=== PATIENT | female | born 1955 | race Caucasian/White ===

== ENCOUNTER → 2019-04-19 16:24 | Outpatient (BNVA) | payer MEDICARE, BC, SELFPAY | PROVIDERS: PCP Family Medicine; Visit Provider Internal Medicine | DX: K59.00 Constipation, unspecified (principal); L64.9 Androgenic alopecia, unspecified; E03.9 Hypothyroidism, unspecified; E78.5 Hyperlipidemia, unspecified | CPT/HCPCS: 83540; 83550; 84443; 85025 ==

== ENCOUNTER → 2021-01-05 14:59 | Outpatient (BNVA) | payer MEDICARE, BC, SELFPAY | PROVIDERS: PCP Family Medicine; Visit Provider Internal Medicine | DX: R41.82 Altered mental status, unspecified (principal) | CPT/HCPCS: 80053; 82607; 82746; 84443 ==

== ENCOUNTER 2021-01-16 12:21 | Outpatient (CLI) | payer MEDICARE, BC, SELFPAY ==
--- NOTE | 2021-01-16 13:00 | MR_ITS ---
WS: [id number] MRA ANGIOGRAPHY [place] HISTORY: Acute memory loss COMPARISON: None available. TECHNIQUE: 3-D MR angiography is performed of the [place]. All images are reviewed including source images. Distal vertebral and basilar arteries are intact with no significant stenosis or plaque. Posterior ce rebral arteries are normal course and caliber. Slightly prominent and in the proximal RIGHT posterior cerebral artery. Posterior communicating arteries are both patent. Intracranial portion of the internal carotid arteries are normal course and caliber. No significant a therosclerosis, stenosis or aneurysm identified. Middle and anterior cerebral arteries are both paten t with no significant disease. Anterior communicating artery is also normal. MR/MR angio head wo con [id number] IMPRESSION: Normal MRA [place].
--- NOTE | 2021-01-16 13:15 | MR_ITS ---
WS: [id number] MRI BRAIN WITH AND WITHOUT CONTRAST HISTORY: MEMORY TROUBLE COMPARISON: 03/24/2012 TECHNIQUE: Multiplanar imaging performed through the brain with MultiHance 30 ml's IV. No acute infarcts are seen. Redd-white matter differentiation is well preserved. There are numerous s ubcortical T2 and FLAIR signal hyperintensities. These were also present on the study from 03/24/2012 without significant progression. Once signal hyperintensity is adjacent to the medial RIGHT temporal horn. There are a few that are very closely associated with the corpus callosum. Majority of the rem aining of lesions are subcortical. No prior infarct or hemorrhage. Ventricles and extra-axial spaces are normal. Clivus and pituitary gland are normal. Visualized posterior fossa and brainstem are also normal. 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 No enhancing masses. Again noted is the very small venous developmental abnormality in the posterior RIGHT parietal lobe. Dural venous sinuses are normal. Paranasal sinuses: Near complete opacification of the LEFT maxillary sinus with mucoperiosteal thicke paulo. No air-fluid levels. Mastoid air cells: Normal. Calvarium and scalp: Normal. MR/MR head wo/w con [id number] IMPRESSION: 1. No acute infarct or enhancing mass. 2. Numerous T2 and FLAIR signal hyperintensities throughout the white matter. Very minimal progression since 03/24/2012. These may all be related to small ve ssel ischemic change but also consider hypertension, migraines and smoking hist ory. Distribution not typical for demyelinating disease. None of these lesions enhance. 3. 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
--- NOTE | 2021-01-16 13:45 | MR_ITS ---
WS: [id number] MRA CAROTID ARTERIES HISTORY: Acute stroke like symptoms COMPARISON: None available. TECHNIQUE: MRA is performed with intravenous gadolinium. MIP and source images are reviewed. Right: Carotid artery arises from the subclavian artery. Normal course and caliber with no stenosis. Left: Carotid artery arises very close to the base of the brachiocephalic. Normal course and caliber with no occlusion or stenosis. Subclavian Arteries: Normal. Vertebral Arteries: Normal. MR/MR angio neck w con* [id number] IMPRESSION: No significant stenosis or occlusion cervical carotid arteries.
[2021-01-16] MEDS: gadobenate dimeglumine 20 mL vial IV (14:05)
== END 2021-01-16 12:22 | disposition home or self-care (01) ==
LOC: RADSHAW 12:23
PROVIDERS: PCP Internal Medicine; Visit Provider Internal Medicine
DX: R41.3 Other amnesia (principal); J39.2 Other diseases of pharynx
CPT/HCPCS: 70544; 70548; 70553; A9577

== ENCOUNTER → 2022-11-23 11:17 | Outpatient (BNVA) | payer MEDICARE, BC, SELFPAY | PROVIDERS: PCP Internal Medicine; Visit Provider Nurse Practitioner Family | DX: E66.9 Obesity, unspecified (principal); K21.9 Gastro-esophageal reflux disease without esophagitis; I10 Essential (primary) hypertension; E78.5 Hyperlipidemia, unspecified; L64.9 Androgenic alopecia, unspecified | CPT/HCPCS: 80053; 80061; 84443 ==

== ENCOUNTER 2023-03-02 10:02 | Outpatient (CLI) | payer MEDICARE, BC, SELFPAY ==
--- NOTE | 2023-03-02 10:15 | US_ITS ---
WS: [id number] ULTRASOUND SOFT TISSUE AREA OF CONCERN INDICATION: RIGHT neck palpable area TECHNIQUE: Ultrasound soft tissue neck area of concern FINDINGS: Ultrasound in the RIGHT neck area of concern. Elongated lymph node in the area of concern w ith preserved fatty hilum LEFT neck measures 2.1 x 0.6 x 0.8 cm. Preserved fatty hilum with minimal c ortical thickening. This is nonspecific but may be reactive. No other underlying abnormalities visualized. Recommend contrast-enhanced CT of the neck in further e valuation. IMPRESSION: See above
== END 2023-03-02 10:03 | disposition home or self-care (01) ==
LOC: RAD 10:03
PROVIDERS: PCP Internal Medicine; Visit Provider Nurse Practitioner Family
DX: R59.0 Localized enlarged lymph nodes (principal)
CPT/HCPCS: 76536

== ENCOUNTER 2023-03-11 10:14 | Outpatient (CLI) | payer MEDICARE, BC, SELFPAY ==
--- NOTE | 2023-03-11 10:30 | CT_ITS ---
WS: [id number] CT NECK WITH CONTRAST HISTORY: abnormal US of neck TECHNIQUE: Contiguous 2 mm axial images are performed through the neck with intravenous contrast. Sag ittal and coronal reformats are also submitted. All CT scans at [facility] use at least one o f these dose optimization techniques: automated exposure control; mA and/or kV adjustment per patient size (includes targeted exams where dose is matched to clinical indication); or iterative reconstruc tion. CONTRAST: CONTRAST: Omnipaque 350; 100 mL IV. DLP: 177.44 mGy.cm COMPARISON: Ultrasound RIGHT neck 03/02/2023 Nasopharynx, oropharynx, hypopharynx and larynx are unremarkable. No soft tissue masses or abnormal e nhancement. Torus tubarius and fossa of Rosenmuller and parapharyngeal fat are normal. No significant lymphadenopathy is identified. Small benign cervical chain lymph nodes. There is a tiny subcentimeter LEFT thyroid nodule measuring 5 mm. Parotid and submandibular glands ar e negative. No osseous abnormalities. Visualized portions of the skull base demonstrate no abnormalities. Orbits and globes are within norm al limits. No soft tissue masses. Visualized paranasal sinuses and mastoid air cells are normal. Lung apices are clear. IMPRESSION: 1. No neck mass. 2. No cervical chain lymphadenopathy.
[2023-03-11 10:53] LABS: Blood Urea Nitrogen 20 mg/dL (8-23); Glomerular Filtration Rate 62.1 mL/min (90-130)
[2023-03-11] MEDS: iohexol 350 mg/mL 500 mL Btl (per mL) IV (10:57)
== END 2023-03-11 10:15 | disposition home or self-care (01) ==
LOC: RAD 10:14
PROVIDERS: PCP Internal Medicine; Visit Provider Nurse Practitioner Family
DX: R93.89 Abnormal findings on diagnostic imaging of other specified body structures (principal); R59.0 Localized enlarged lymph nodes
CPT/HCPCS: 70491; 82565; 84520; Q9967

== ENCOUNTER → 2023-03-18 12:00 | Outpatient (BNVA) | payer MEDICARE, BC, SELFPAY | PROVIDERS: PCP Internal Medicine; Visit Provider Nurse Practitioner Family | DX: E78.5 Hyperlipidemia, unspecified (principal); I10 Essential (primary) hypertension; E66.9 Obesity, unspecified; E78.2 Mixed hyperlipidemia; K21.9 Gastro-esophageal reflux disease without esophagitis; R59.0 Localized enlarged lymph nodes | CPT/HCPCS: 80053; 80061; 83516 ==

== ENCOUNTER → 2024-11-16 10:29 | Outpatient (BNVA) | payer MEDICARE, BC, SELFPAY | PROVIDERS: Visit Provider Dermatology | DX: L57.8 Other skin changes due to chronic exposure to nonionizing radiation (principal); L81.4 Other melanin hyperpigmentation; L82.1 Other seborrheic keratosis; D23.72 Other benign neoplasm of skin of left lower limb, including hip; L57.0 Actinic keratosis | CPT/HCPCS: 17000; 99203 ==

== ENCOUNTER 2024-11-21 10:55 | Emergency (ER) | payer MEDICARE, BC, SELFPAY ==
--- NOTE | 2024-11-21 11:01 | XR_ITS ---
WS: [id number] Portable AP upright chest, 11/21/2024 Clinical Data: cp Comparison: Two-view chest, 07/17/2015 Findings: No nodules, masses or effusions are seen. The heart is normal. The pulmonary vascularity is not increased. No pneumonia or pneumothorax is seen. The aortic arch and descending thoracic aorta show tortuosity. XR/XR chest 1V portable [id number] Impression: Atherosclerosis.
--- NOTE | 2024-11-21 11:08 | ECG_ITS ---
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 Measurements Intervals [place] Rate: 55 P: 19 ND: 181 QRS: 5 QRSD: 88 T: 18 QT: 431 QTc: 415 Interpretive Statements SINUS BRADYCARDIA MODERATE VOLTAGE CRITERIA FOR LVH, CONSIDER NORMAL VARIANT [MEETS CRITERIA IN ONE OF: R(aVL), S(V1), R(V5), R(V5/V6)+S(V1)] No previous ECG available for comparison Electronically Signed On 11-24-2024 08:53:04 CDT by Les Min M.D. [id number]
[2024-11-21 11:09] VITALS: BP 166/82; PULSE 58; RESP 16; TEMP 36.9; O2SAT 98
--- OUTSIDE RECORDS SUMMARY | 2024-11-21 11:26 | XMS_ITS | Clinical Summary ---
Author Organization [facility] [employer] Address [address] [place] [address] Care Team Providers Care Manager Investment Name Role Phone Tyron Quiroga MD Unavailable [phone] Steve Rodríguez DO Unavailable [phone] Allergies Active Allergy Reactions Criticality Noted Date Comments Codeine Rash Low 03/31/2017 Hydrocodone Itching 12/17/2013 Tramadol Itching 12/17/2013 Medications benazepril (LOTENSIN) 10 MG tablet Take 10 mg by mouth daily. Active metoprolol succinate (TOPROL-XL) 50 MG 24 hr tab Take 50 mg by mouth daily. Active omeprazole (PRILOSEC) 40 MG capsule Take 40 mg by mouth daily. Active atorvastatin (LIPITOR) 10 MG tablet Take 10 mg by mouth daily. Active aspirin 81 MG EC tablet Take 81 mg by mouth daily. Active calcium carbonate-vitami n D3 (CALTRATE 600 + D) 600 mg (1,500 mg)-800 unit Chew Take by mouth. Active Active Problems No known active problems Family History Medical History Relation Comments Arthritis Father Heart disease Father Stroke Father Arthritis Mother Cancer Mother Osteoporosis Mother Relation Status Comments Father Mother Social History Tobacco Use Types Packs/Day Years Used Date Smoking Tobacco: Former Cigarettes Q uit: 05/30/1994 Smokeless Tobacco: Never Alcohol Use Standard Drinks/Week Comments No 0 (1 standard drink = 0.6 oz pur e alcohol) Health Literacy Answer Date Recorded Health Literacy 1 01/07/2021 Comments No Sex and Gender Information Value Date Recorded Sex Assigned at Not on file Legal Sex Female 9:[address] TESTER Gender Identity Not on file Sexual Orientation Not on file Last Filed Vital Signs Vital Sign Reading Time Taken Comments Blood Pressure 151/84 05/30/2017 9:[address] Pulse 55 05/30/2017 9:[address] Temperature 36.6 C (97.8 F) 05/30/2017 9:[address] Respiratory Rate 18 05/30/2017 9:[address] Oxygen Saturation - - Inhaled Oxygen Concentration - - Weight 76.7 kg (169 lb) 05/02/2017 1:[address] Height 162.6 cm (5' 4 ) 05/30/2017 9:[address] Body Mass Index 29.01 05/02/2017 1:[address] Plan of Treatment Health Maintenance Due Date Last Done Comments COLONOSCOPY 1955 CT Colonography 1955 Colorectal Cancer Screening 1955 FIT DNA 1955 FIT 1955 Hepatitis C Screening 1955 Mammogram 1955 SIGMOIDOSCOPY 1955 Depression Screening 08/03/1971 TDAP/DTaP/TD Vaccines (1 - Tdap) 1972 Lipid Panel 1993 Pneumococcal Vaccine 50+ (1 of 1 - PCV) 08/03/2003 Zoster Vaccine (1 of 2) 08/03/2003 DXA Scan 2018 COVID-19 Vaccine (1 - 2023-2 5 season) 2023 Annual Wellness Exam 04/04/2024 Influenza Series (#1) 2024 Respiratory Syncytial Virus (RSV) Immunization - pts and pts aged 60 yrs+ (1 - 1-dose 75+ series) 2028 Hepatitis B Vaccine Aged Out No longe r eligible based on patient's age to complete this topic Meningococcal B Vaccine Aged Out No l onger eligible based on patient's age to complete this topic [place] [address] Member Subscriber Plan / Payer (Ef fective 2017-Present) Name:Ami Kirkpatrick Member ID:[id number] Relation to Subscriber:Self Name:Ami Kirkpatrick Subscriber ID:[id number] Payer ID:[id number] (NAIC) Type:Not on file Address: [place] [id number] Care Teams Manager Investment Relationship Specialty Start Date End Date Steve Rodríguez DO [address] [place] [address] PCP - Medical Office Receptionist 03/31/17 Tyron Quiroga MD [address] [place] [address] Referring Provider Orthopedic Surgery 03/31/17
--- OUTSIDE RECORDS SUMMARY | 2024-11-21 11:26 | XMS_ITS | Clinical Summary ---
Author Organization [facility] Address [address] [place] [address] Phone Care Team Providers Care Elementary Teacher Name Role Phone Kenroy Andujar MD Primary Care Prov ider Allergies Active Allergy Reactions Criticality Noted Date Comments Codeine 11/16/2013 Hydrocodone 12/17/2013 Ketorolac 11/16/2013 Tramadol 12/17/2013 Medications * This document contains information received from the source organization and may not represent a complete record from that organization. benazepril (LOTENSIN) 10 MG tablet 09/25/2012 Active gabapentin (NEURONTIN) 300 MG capsule 01/24/2013 Active atorvastatin (LIPITOR) 10 MG tablet 09/25/2012 Active metoprolol (TOPROL-XL) 50 MG 24 hr tablet 09/25/2012 Act daniel omeprazole (PRILOSEC) 40 MG capsule 09/25/2012 Active escitalopram oxalate (LEXAPRO) 5 MG tablet TAKE 1 TABLET BY MOUTH DAILY 11 01/26/2016 Active phenazopyridine (PYRIDIUM) 100 MG tablet TAKE TWO TABLETS BY MOUTH THREE TIMES DAILY NEEDED 0 11/25/2015 Active Active Problems Problem Noted Date Diagnosed Date Esophageal reflux 09/25/2012 Hypercholesterolemia 09/25/2012 Essential hypertension 09/25/2012 Routine general medical exam ination at a health care facility 09/18/2012 Encounters Date Type Department Care Team Description 09/25/2024 2:35 PM CDT - 09/25/2024 11:59 PM CDT Hospital Encounter [facility] [address] [phone] Kenroy Andujar MD Encounter for screening mammogram for malignant neoplasm of breast Discharge Disposition: Home 09/25/2024 Travel 09/24/2024 Travel from Last 3 Months Family History Medical History Relation Name Comments Heart disease Father Stroke Father High Blood Pressure Mother Relation Name Status Comments Father Mother Social History Tobacco Use Types Packs/Day Years Used Date Smoking Tobacco: Never Smokeless Tobacco: Never Alcohol Use Standard Drinks/Week Comments Not Asked 0 (1 standard drink = 0.6 oz pur e alcohol) Comments No Sex and Gender Information Value Date Recorded Sex Assigned at Not on file Legal Sex 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 Gender Identity Not on file Sexual Orientation Not on file Last Filed Vital Signs Vital Sign Reading Time Taken Comments Blood Pressure 134/69 09/13/2023 2:31 PM CDT Pulse 65 09/13/2023 2:31 PM CDT Temperature 36.7 C (98.1 F) 02/20/2014 10:24 AM FOOD AND BEVERAGE ASSISTANT MANAGER Respiratory Rate 18 02/02/2016 2:11 PM CDT Oxygen Saturation 95% 02/20/2014 12:45 PM FOOD AND BEVERAGE ASSISTANT MANAGER Inhaled Oxygen Concentration - - Weight 76.7 kg (169 lb 1.9 oz) 02/02/2016 2:11 P M CDT Height 162.6 cm (5' 4 ) 02/02/2016 2:11 PM CDT Body Mass Index 29.03 02/02/2016 2:11 PM CDT Plan of Treatment Health Maintenance Due Date Last Done Comments Colorectal Cancer Screening Annual FOBT/FIT Test 1955 Colorectal Cancer Screening Cologuard 1955 Colorectal Cancer Screening Flex Sigmoidoscopy 1955 Annual Depression Screening 1964 Hepatitis C Antibody Screen 08/03/1971 Pneumococcal Vaccine Age 50+ (1 of 1 - PCV) 08/03/2003 Colonoscopy Every 6 Months 08/20/2014 02/20/2014 Bone Density 2018 Medicare Subsequent AWV G0439 07/04/2019 Colorectal CA Screen 10 Year Colonoscopy 02/21/2024 02/20/2014 Colorectal Cancer Screening 02/21/2024 Flu Vaccine (#1) 12/03/2024 Mammogram 09/25/2025 09/25/2024, 03/06, 08/17/2023, Additional history exists RSV Immunization Pa tients or 60+ Years (1 - 1-dose 75+ series) 2028 02/20/2014 02/20/2014 02/20/2014 02/20/2014 02/20/2014 02/20/2014 Procedures Procedure Name Priority Date/Time Associated Diagnosis Comments MAMMO DIGITAL SCREENING BILATERAL Routine 09/25/2024 3:00 PM CDT Encounter for screening mammogram for malignant neoplasm of breast from Last 3 Months Results * Mammography Digital Screening Bilateral (09/25/2024 3:00 PM CDT) Anatomical Region Laterality Modality Breast N/A Mammogram 09/25/2024 5:42 PM CDT Narrative 09/25/2024 5:44 PM CDT HISTORY: 69 year-old woman is asymptomatic and presents for screening mammography. The patient is post bilateral reduction mammoplasty. REFERENCE EXAMINATION: Comparison is made to the prior exams dated August 17, 2023 through February 02, 2016. TECHNIQUE: Bilateral CC and MLO digital images were obtained with tomosynthesis. Computer aided detection was utilized during the interpretation of this mammogram. FINDINGS: BREAST DENSITY CATEGORY: There are scattered areas of fibroglandular density. Bilateral central architectural distortion is seen consistent with reduction mammoplasty. Bilateral vascular and round calcific stations are noted, unchanged. Right breast: There are no significant masses, suspicious microcalcifications or other findings of concern in the right breast. There has been no significant interval change. Left breast: There are no significant masses, suspicious microcalcifications or other findings of concern in the left breast. There has been no significant interval change. ASSESSMENT: BI-RADS Category 2. Benign Findings. FOLLOW-UP RECOMMENDATION: Followup in 1 year Recommend mammography in 12 months or as clinically warranted, regular physical exam by a healthcare provider and monthly self-breast exam. Disclaimer A negative mammography report should not preclude biopsy if clinically indicated. Any palpable mass should be aspirated, biopsied, or followed clinically. The [facility] provide medical services for physician-referred patients. This report was sent to you at the request of the patient. All patient information was entered into a reminder system for patient to receive notification of their next targeted date for screening/ diagnostic mammography. Procedure Note Carolyn Chavez MD - 09/25/2024 HISTORY: 69 year-old woman is asymptomatic and presents for screening mammography. The patient is post bilateral reduction mammoplasty. REFERENCE EXAMINATION: Comparison is made to the prior exams dated August 17, 2023 through February 02, 2016. TECHNIQUE: Bilateral CC and MLO digital images were obtained with tomosynthesis. Computer aided detection was utilized during the interpretation of this mammogram. FINDINGS: BREAST DENSITY CATEGORY: There are scattered areas of fibroglandular density. Bilateral central architectural distortion is seen consistent with reduction mammoplasty. Bilateral vascular and round calcific stations are noted, unchanged. Right breast: There are no significant masses, suspicious microcalcifications or other findings of concern in the right breast. There has been no significant interval change. Left breast: There are no significant masses, suspicious microcalcifications or other findings of concern in the left breast. There has been no significant interval change. ASSESSMENT: BI-RADS Category 2. Benign Findings. FOLLOW-UP RECOMMENDATION: Followup in 1 year Recommend mammography in 12 months or as clinically warranted, regular physical exam by a healthcare provider and monthly self-breast exam. Disclaimer A negative mammography report should not preclude biopsy if clinically indicated. Any palpable mass should be aspirated, biopsied, or followed clinically. The [facility] provide medical services for physician-referred patients. This report was sent to you at the request of the patient. All patient information was entered into a reminder system for patient to receive notification of their next targeted date for screening/ diagnostic mammography. Kenroy Andujar MD MM IMG ORDERABLES Final Result from Last 3 Months Insurance MEDICARE [facility] Care Teams Elementary Teacher Relationship Specialty Start Date End Date Kenroy Andujar MD [address] [place] [id number] PCP - General Internal Medicine 07/06/21
--- OUTSIDE RECORDS SUMMARY | 2024-11-21 11:26 | XMS_ITS | Patient Health Record ---
Author Organization [facility] Address [address] [place] [address] Care Team Providers Care Section Gang Worker Name Role Phone AndujarKenroy claire Primary Care Provider Allergies Allergen (clinical drug ingredient) Drug/Non Drug Allergy documented on EMR Reaction Allergy Type Onset Date Status codeine Codeine Unknown Drug Allergy Active hydrocodone Hydrocodone Unknown Drug Allergy Act daniel Results Component Value Reference Range Flag Notes CBC w\ Auto Diff 10204 Reviewed date:11/01/2024 09:16:07 AM Interpretation: Performing Lab: Notes/Report: Diagnosis Description: Headache, unspecified 08-JAN-2020 11:53:42<$> WBC 6.5 4.5-11.0 X10'3 RBC 4.65 4.00-5.20 X10'6 Hgb 13.1 12.0-16.0 G/DL Hct 41.2 36.0-46.0 % MCV 88.6 80.0-100.0 FL MCH 28.2 27.0-31.0 PG MCHC 31.8 31.0-37.0 G/DL Platelet 262 150-400 X10'3 RDW-SD 41.1 35.0-49.0 FL RDW-CV 12.5 12.2-15.6 % MPV 9.8 9.2-12.0 FL Neutro Auto% 58.7 40.0-70.0 % Lymph Auto% 28.8 22.0-44.0 % Sawyer Auto% 7.7 3.0-7.0 % HI Eos Auto% 3.7 2.0-4.0 % Baso Auto% 0.8 0.0-1.0 % Imm Gran% .3 .0-.4 % Neutro Abs 3.82 .80-7.70 Absolute Neutrophil Count 3820 NA Lymph Abs 1.87 .10-4.10 Sawyer Abs .50 .20-1.00 Eos Abs .24 .00-.40 Baso Abs .05 .00-.20 Imm Gran Abs .02 .00-.10 NRBC# .00 .00-.20 X10'3 NRBC% .00 .00-.20 /100 intact WBC's Comprehensive Metabolic Pane l (CMP) 90531 Reviewed date:11/01/2024 09:16:07 AM Interpretation: Performing Lab: Notes/Report: Diagnosis Description: Headache, unspecified 08-JAN-2020 11:53:42<$> Glucose Serum 123 71-110 MG/DL HI Testing p erformed at [facility], [address] [place] [address] [place] [address]. CLIA ID#: [id number] BUN 16 7-21 MG/DL Creat .81 .51-1.17 MG/DL Use of this assay is not recommended for patients undergoing treatment with phenindione, due to the potential for falsely depressed results. G-jvjtzv-c-benzoquinon e imine (NAPQI) is a metabolite of acetaminophen, NAPQI concentrations of apparoximately 10 mg/L correlation to toxic levels of acetaminophen demonstrates a greater than or equil to 10% change in results. NAPQI concentrations greater than this may lead to falsely depressed results for patient samples. GFR 77.3 NA Calculation pe rformed from GFR calculator provided by the [employer]. Glomerular Filtration rate(GRF) is the best overall index of kidney function. Normal GFR varies according to age,sex, body size, and declines with age. The National Kid[employer] Foundation recommends using the CKD-EPI Creatinine Equation(2020) to estimate GFR. BUN/Creat Ratio 19.8 12.0-20.0 % Total Protein 6.8 5.8-8.0 G/DL Albumin 4.4 3.2-4.8 G/DL Globulin 2.4 2.3-3.5 G/DL Alb/Glob 1.8 0.8-2.2 Calcium 9.7 8.7-10.4 MG/DL Sodium 141 136-145 MMOL/L Potassium 4.2 3.5-5.1 MMOL/L Chloride 103 98-107 MMOL/L CO2 28.9 20.0-31.0 MMOL/L Anion Gap 13 5-15 Alk Phos 69 46-116 Bili Total .4 .3-1.2 MG/DL Use of this assay is not recommended for patients undergoing treatment with eltrombopag due to the potential for falsely elevated results. AST/SGOT 25 15-37 UNIT/L ALT/SGPT 16 12-78 UNIT/L Osmo Serum,Calculated 294 280-300 MOSM/KG Sedimentation Rate 04609 Reviewed date:11/01/2024 09:16:07 AM Interpretation: Performing Lab: Notes/Report: Diagnosis Description: Headache, unspecified 08-JAN-2020 11:53:42<$> Sed Rate 3 0-30 MM/HR Thyroid Stimulating Hormone (TSH) 49655 Reviewed date:11/01/2024 09:16:07 AM Interpretation: Performing Lab: Notes/Report: Diagnosis Description: Headache, unspecified 08-JAN-2020 11:53:42<$> TSH 1.182 .358-3.740 MlU/ML CRP 57489 Reviewed date:11/01/2024 09:16:07 AM Interpretation: Performing Lab: Notes/Report: Diagnosis Description: Headache, unspecified 08-JAN-2020 11:53:42<$> CRP <.50 .40-1.00 MG/DL CT Head w/ + w/o Contrast-70 470 Reviewed date:11/13/2024 11:04:09 AM Interpretation: Performing Lab: Notes/Report: See Below For Report CT Head w/ + w/o Contrast Read See Below For Report CT Head w/ + w/o Contrast-70 470 Reviewed date:11/13/2024 11:04:09 AM Interpretation: Performing Lab: Notes/Report: gxr=[id number]&org=iSite Knee 2V Left-65026 Reviewed date:02/15/2024 03:28:42 PM Interpretation: Performing Lab: Notes/Report: irn=[id number]&org=iSite Mammogram Diag Cm Unilat L T-38714 Reviewed date:03/07/2024 04:02:21 PM Interpretation: Performing Lab: Notes/Report: % Iron Saturation (Fe & TIBC )--18329,53190 Reviewed date:11/01/2024 09:16:07 AM Interpretation: Performing Lab: Notes/Report: Diagnosis Description: Headache, unspecified 08-JAN-2020 11:53:42<$> Iron 64 50-170 MCG/DL Per Iron as say instruction for Use(IFU), patients treated with metal-binding drugs (e.g.deferoxamine) may have depressed iron values as chelated iron may not properly react in the iron assay. Testing was performed with this assay method. TIBC 250 250-450 NG/DL % Iron Saturation 26 20-50 % Lipid Panel CSP--NO CPT Reviewed date:03/20/2024 08:46:34 AM Interpretation: Performing Lab: Notes/Report: Trig 145 NA High 200-499 10-14 yr 32-125 Classification Guidelines:Triglyceride s 15-19 yr 39-132 Children: Male 0-4 yr 34-112 10-14 yr 37-131 5-9 yr 30-101 Borderline High 150-199 Adults: >20yrs Very high >=500 Children: Female Desirable <150 0-4 yr 22-99 5-9 yr 32-105 15-19 yr 37-148 Chol 175 <=200 MG/DL HDL 44 39-96 MG/DL 10-14y 37-70 10-14y 37-74 >=20y 40-59 Male: 5-9y 38-75 5-9y 36-73 >=20y 40-59 15-19y 30-63 Reference Ranges:HDL 15-19y 35-74 Female: CH/HDL 4.0 0.0-4.9 RATIO LDL 102 0-130 MG/DL LDL result is inaccurate , if Trig is >400 mg/dl. See DLDL result. Hemoglobin Q6I--JX CPT Reviewed date:03/20/2024 08:46:34 AM Interpretation: Performing Lab: Notes/Report: Hgb A1c 5.4 3.8-6.4 % Interpretation Of Hgb A1c: 4.5-6.2 % nondiabetics. >7.0 % diabetics. EAG 108 NA Estimated Aver age Glucose(EAG). zzzUS Ankle Brachial Pressur e Index Screen Reviewed date:03/20/2024 08:46:34 AM Interpretation: Performing Lab: Notes/Report: See Below For Report US Ankle Brachial Pressure Index Screen Read See Below For Report zzzUS Ankle Brachial Pressur e Index Screen Reviewed date:03/20/2024 08:46:42 AM Interpretation: Performing Lab: Notes/Report: foj=[id number]&org=iSite zzzCT Cardiac Calcium Scorin g Screening-31888 Reviewed date:03/20/2024 08:46:34 AM Interpretation: Performing Lab: Notes/Report: See Below For Report CT Cardiac Calcium Scoring Screening Read See Below For Report zzzCT Cardiac Calcium Scorin g Screening-03846 Reviewed date:03/20/2024 08:46:42 AM Interpretation: Performing Lab: Notes/Report: whl=[id number]&org=iSite zzzCT Cardiac Calcium Scorin g Screening RAD Reviewed date:03/20/2024 08:46:34 AM Interpretation: Performing Lab: Notes/Report: See Below For Report Technique: Gated cardiac imaging was performed with calculation of a Read See Below For Report zzzCT Cardiac Calcium Scorin g Screening RAD Reviewed date:03/20/2024 08:46:42 AM Interpretation: Performing Lab: Notes/Report: akt=[id number]&org=iSite Schedule Confirmation Reviewed date:03/20/2024 08:46:34 AM Interpretation: Performing Lab: Notes/Report: US Ankle Brachial Pressure Index Screen Schedule Confirmation Reviewed date:03/20/2024 08:46:34 AM Interpretation: Performing Lab: Notes/Report: CT Cardiac Calcium Scoring Screening RAD Schedule Confirmation Reviewed date:03/20/2024 08:46:34 AM Interpretation: Performing Lab: Notes/Report: Lipid Panel CSP Schedule Confirmation Reviewed date:01/30/2024 12:31:21 PM Interpretation: Performing Lab: Notes/Report: Nurse Assessment-Cardiac Screening Schedule Confirmation Reviewed date:01/30/2024 12:31:21 PM Interpretation: Performing Lab: Notes/Report: US Ankle Brachial Pressure Index Screen Schedule Confirmation Reviewed date:01/30/2024 12:31:21 PM Interpretation: Performing Lab: Notes/Report: CT Cardiac Calcium Scoring Screening RAD Schedule Confirmation Reviewed date:01/30/2024 12:31:21 PM Interpretation: Performing Lab: Notes/Report: Lipid Panel CSP Schedule Confirmation Reviewed date:03/20/2024 08:46:34 AM Interpretation: Performing Lab: Notes/Report: IH Knee HoodV Left - 14187 Reviewed date:02/15/2024 03:28:31 PM Interpretation: Performing Lab: Notes/Report: See Below For Report Knee 2V Left Reason For Referral No Information Medications Medication SIG (Take, Route, Frequency, Duration) Notes Start Date End Date Status Omeprazole 40 MG Capsule Delayed Release 1 capsule 30 minutes before morning meal Orally Once a day; Duration: 90 days Active Fluticasone Propionate 50 MCG/ACT Suspension 2 spray in each nostril Nasally Once a day; Duration: 30 day(s) Not-Taking Caltrate 600+D3 600-800 MG-UNIT Tablet 1 tablet with a meal Orally Once a day Not-Taking Aspirin 81 81 MG Tablet Delayed Release 1 tablet Orally Once a day Not-Taking predniSONE 20 MG Tablet 1 tablet with fo od or milk Orally Once a day; Duration: 10 days 10/31/2024 Active Finasteride 5 MG Tablet Take 1 tablet by mouth once daily; Duration: 90 Active Shingrix 50 MCG/0.5ML Suspension Reconstituted as directed Intramuscular 08/07/2020 Not-Taking Atorvastatin Calcium 10 MG Tablet Take 1 tablet by mouth once daily; Duration: 90 Active Triamcinolone Acetonide 0.1 % Cream 1 application Externally Twice a day as needed 10/03/2019 Not-Taking Citalopram Hydrobromide 20 MG Tablet Take 1 tablet by mouth once daily; Duration: 90 days Active Medrol 4 MG Tablet Therapy Pack as directed Orally 12/08/2021 Not-Nelson g Fluticasone-Salmeterol 500-50 MCG/ACT Aerosol Powder Breath Activated INHALE 1 PUFF BY MOUTH TWICE DAILY; Duration: 30 Active predniSONE 20 MG Tablet 1 tablet Orally Once a day; Duration: 7 day(s) 06/25/2022 Not-Jesusita ng Metoprolol Succinate ER 50 MG Tablet Extended Release 24 Hour Take 1 tablet by mouth once daily; Duration: 90 Active Benazepril HCl 10 MG Tablet Take 1 tablet by mouth once daily; Duration: 90 Active Social History Tobacco Use: Social History Observation Description Date Details (start date - stop date) Former Smoker NA - NA Social History Depression Screening Social Info Question Answer Notes depression screening findings Findings Negative (0 -4) 10/31/24 PHQ-9 Little interest or p neno in doing things Not at all Feeling down, depressed, or hopeless Not at all Trouble falling or staying asleep, or sleeping t oo much Not at all Feeling tired or having little energy Not at all Poor appetite or overeating Not at all Feeling bad about yourself, or that you are a failure, or have let yourself or your family down Not at all Trouble concentrating on thi ngs, such as reading the newspaper or watching television Not at all Moving or speaking so slowly that other people could have noticed. Or the opposite ? being so fidgety or restless that you have been moving around a lot more than usual Not at all Thoughts that you would be b odilon off , or of hurting yourself in some way Not at all Total Score 0 Comprehensive Health Assessm ent Social Info Question Answer Notes *Social Determinants of Health Has lack of transportation kept you from medical appointments, meetings, work or from getting things needed for daily living? No Recently, have you worried t hat your food would run out before you got money to buy more? No Do you feel physically and emotionally safe wher e you currently live? Yes Are you worried about losing your housing? No Have you recently been gerry rned that your utilities would be turned off (electricity, gas, or water)? No Tobacco Use: Social Info Question Answer Notes Tobacco Control (Standard) Tobacco use: Former smoker How long has it been since you last smoked? Greater than 10 years Section Notes: 08/07/20 09/08/21 08/07/20 08/07/20 08/07/20 09/08/21 08/07/20 09/08/21 08/07/20 09/08/21 08/07/20 09/08/21 08/07/20 09/08/21 08/07/20 09/08/21 08/07/20 09/08/21 08/07/20 09/08/21 08/07/20 09/08/21 08/07/20 09/08/21 02/02/24 08/07/20 09/08/21 02/02/24 08/07/20 09/08/21 02/02/24 11/06/24 08/07/20 09/08/21 08/07/20 09/08/21 08/07/20 09/08/2121 6/7/22 5/6/21 6/7/22 5/6/21 6/7/22 5/6/21 6/7/22 5/6/21 6/7/22 5/6/21 6/7/22 5/6/21 6/7/22 Problems Problem Type SNOMED Code ICD Code Onset Dates Problem Status W/U Status Risk Notes Problem Chronic kidney disease stage 2 (713399632) Chronic kidney disease, stage 2 (mild) (N18.2) Active confirmed Problem Essential hypertension (16147590) Essential hypertension (I10) Active confirmed Problem Hyperlipidaemia (67099157) Hyperlipidemia, unspecified hyperlipidemia type (E78.5) Active confirmed Problem Sacroiliitis (07222891) Sacroiliitis (M46.1) Active confirmed Problem Mild recurrent major depression (15597390) Mild episode of recurrent major depressive disorder (F33.0) Active confirmed Problem Temporal pain (R51.9) Active confirmed Problem Mitral valve disorder (73616789) Nonrheumatic mitral (valve) prolapse (I34.1) Active confirmed [id number] -S nomed Description:M itral valve prolapse Problem Shortness of breath (069794669) Shortness of breath (R06.02) Active confirmed [id number]- Problem Essential hypertension (61579765) Essential primary hypertension (I10) Active confirmed [id number] nomed Description:B enign essential hypertension Vital Signs Heart Rate 60 /min 11/06/2024 Temperature 97.8 degrees Fahrenheit 11/06/2024 Blood pressure diastolic 93 mm Hg 11/06/2024 Oximetry 97 % 11/06/2024 Height-cm 162.56 cm 11/06/2024 Weight-kg 76.2 kg 11/06/2024 Height 64 in 11/06/2024 Blood pressure systolic 166 mm Hg 11/06/2024 Weight 168 lbs 11/06/2024 BMI 28.83 kg/m2 11/06/2024 Encounters Encounter Location Date Provider Diagnosis [facility] [address] [place] [phone] 02/02/2024 Kenroy Andujar Mild episode of recurrent major depressive disorder F33.0 ; Essential primary hypertension I10 and Depression screen Z13.31 [facility] [address] [address] 10/31/2024 Kenroy Andujar Temporal pain R51.9 ; Essential primary hypertension I10 ; Mild episode of recurrent major depressive disorder F33.0 ; Essential hypertension I10 and Depression screen Z13.31 [facility] [address] [address] 11/06/2024 Kenroy Andujar Encounter for Medicare annual wellness exam Z00.00 ; Essential primary hypertension I10 ; Mild episode of recurrent major depressive disorder F33.0 ; Temporal pain R51.9 and Depression screen Z13.31 [facility] [address] [address] 01/19/2024 Kenroy Andujar [facility] [address] [address] 02/01/2024 Kenroy Andujar Left knee pain, unspecified chronicity M25.562 [facility] [address] [address] 03/05/2024 Kenroy Andujar [facility] [address] [address] 03/05/2024 Kenroy Andujar Abnormal mammogram R92.8 [facility] [address] [address] 04/17/2024 Kenroy Andujar [facility] [address] [place] [phone] 08/15/2024 Kenroy Andujar Advanced care planning/counseling discussion Z71.89 Assessments Encounter Date Diagnosis (ICD Code) Assessment Notes Treatment Notes Treatment Clinical Notes Section Notes 02/01/2024 Left knee pain, unspecified chronicity (ICD-10 - M25.562) 02/02/2024 Mild episode of recurrent major depressive disorder (ICD-10 - F33.0) 02/02/2024 Essential primary hypertension (ICD-10 - I10) [id number] med Description:Yobani ign essential hypertension 03/05/2024 Abnormal mammogram (ICD-10 - R92.8) 08/15/2024 Advanced care planning/automobile travel club counselor ing discussion (ICD-10 - Z71.89) ACP printed and provided to pt 10/31/2024 Temporal pain (ICD-10 - R51.9) 10/31/2024 Essential primary hypertension (ICD-10 - I10) [id number] med Description:Yobani ign essential hypertension 11/06/2024 Encounter for Medicare annual wellness exam (ICD-10 - Z00.00) Please schedule your next AWV in 1 year. 11/06/2024 Essential primary hypertension (ICD-10 - I10) [id number]-Rnv med Description:Yobani ign essential hypertension Pt advised to take meds as prescribed, exercise as tolerated, and monitor BP as directed. If symptoms develop, parameters out of range, or any distress contact clinic or utilize ER. 11/06/2024 Mild episode of recurrent major depressive disorder (ICD-10 - F33.0) 10/31/2024 Mild episode of recurrent major depressive disorder (ICD-10 - F33.0) 02/02/2024 Depression screen (ICD-10 - Z13.31) 10/31/2024 Essential hypertension (ICD-10 - I10) 11/06/2024 Temporal pain (ICD-10 - R51.9) will give dexamethasone in clinic 11/06/2024 Depression screen (ICD-10 - Z13.31) 10/31/2024 Depression screen (ICD-10 - Z13.31) 10/31/2024 Other Venipuncture performed by Sheela Villasenor. Left arm/hand. One attempt. Pt tolerated well, bleeding controlled with light dressing. Lab sent to [facility] via [employer]. 08/15/2024 Other spent 16 mins discussing ACP Dx: Z71.89 Discussed Advance Care Planning. Patient does not have an advance care plan or surrogate decision maker in place. Encouraged patient to consider options, provided with resources to help make decisions regarding advance care options. 1124F Discussed Advance Care Planning. Patient has an advance care plan or surrogate decision maker in place. A copy of pertinent documents have been requested or exist in the chart currently, 1123F Plan Of Treatment No Information Insurance Providers Payer Name Payer Address Payer Phone Subscriber Number Group Number Insured Name Patient Relationship to Insured Coverage Start Date Coverage End Date [place] [address] [place] [phone] [id number] KayaYovannyAmi Self - patient is the insured BCBS Supplement [address] [place] [phone] [id number] Yovanny Kirkpatrickette Self - patient is the insured Medications Administered Medication Instructions Date of Administration Dosage Notes BUPivacaine HCl 09/14/2022 1 mL DEPO-Medrol 09/08/2021 40 mg DEPO-Medrol 09/14/2022 80 mg dexAMETHasone 12/02/2021 8 mg [id number] 239-0 3 dexAMETHasone 11/06/2024 10 mg Rocephin 12/02/2021 1 g [id number] 11 zzDexamethasone 12/17/2019 8 mg dexAMETHasone 09/08/2021 4 mg dexAMETHasone 10/31/2024 10 mg dexAMETHasone 06/28/2022 10 mg dexAMETHasone 12/24/2021 8 mg [id number]- 30 Dexamethasone Sodium Phosphate 10/03/2019 8 mg Medical (General) History Medical History History ICD Code hypertension hyperlipidemia anxiety GERD Dysthymia F34.1 Surgical History Surgery Date(Month/Year) hysterectomy tonsilectomy breast reduction
--- OUTSIDE RECORDS SUMMARY | 2024-11-21 11:26 | XMS_ITS | Clinical Summary ---
Author Organization [facility] Address [address] [place] [address] Care Team Providers Care Entry Clerk Name Role Phone Unavailable Primary Care Provider Unavailabl e Social History Tobacco Use Types Packs/Day Years Used Date Smoking Tobacco: Never Assessed Comments Unknown Sex and Gender Information Value Date Recorded Sex Assigned at Not on file Legal Sex Female 9:01 AM CDT Gender Identity Not on file Sexual Orientation Not on file Plan of Treatment Health Maintenance Due Date Last Done Comments DTAP/TDAP/TD VACCINES (1 - Tdap) 1972 COLORECTAL SCREENING 1998 Colorectal Cancer Screening 1998 FIT-DNA Q 3 years 1998 FIT/FOBT Q 1 year 1998 Flex Sig/CT Colonography Q 5 years 1998 PNEUMOCOCCAL VACCINE 50+ YEA RS (1 of 1 - PCV) 08/03/2003 ZOSTER VACCINE (1 of 2) 08/03/2003 OSTEOPOROSIS SCREENING 2018 BREAST CANCER SCREENING 07/09/2023 07/09/19 23, 07/08/2022, 07/06/2021, Additional history exists INFLUENZA VACCINE (#1) 2024 01/05/2021 RSV VACCINE (60+ or ) (1 - 1-dose 75+ series) 2028
--- OUTSIDE RECORDS SUMMARY | 2024-11-21 11:26 | XMS_ITS | Encounter Summary ---
Author Organization [facility] Address [address] [place] [address] Care Team Providers Care Tour Manager Name Role Phone Unavailable Primary Care Provider Unavailabl e Encounter Details Date Type Department Care Team (Late st Contact Info) Description 01/06/2023 Lab Requisition [facility] [address] [place] [address] Evita Wong NP [address] [address] [place] [address] Social History Tobacco Use Types Packs/Day Years Used Date Smoking Tobacco: Never Assessed Comments Unknown Sex and Gender Information Value Date Recorded Sex Assigned at Not on file Legal Sex Female 9:01 AM CDT Gender Identity Not on file Sexual Orientation Not on file documented as of this encounter Plan of Treatment Not on file documented as of this encounter Procedures Procedure Name Priority Date/Time Associated Diagnosis Comments REFERENCE LAB PROCESSING FEE Routine 01/06/2023 1:10 PM CDT documented in this encounter Results * REFERENCE LAB PROCESSING FEE (01/06/2023 1:10 PM CDT) REFERENCE LAB SENDOUT Completed 01/06/2023 1:15 PM CDT [facility] Other, specify BLOOD SPECIMEN / Unknown Collection / Unknown 01/06/2023 1:10 PM CDT 01/06/2023 1:15 PM CDT us Evita Wong NP CHEMISTRY ORDERABLES Final Res ult [facility] # [id number] [address] [place], [place] [id number] documented in this encounter Visit Diagnoses Not on filedocumented in this encounter
[2024-11-21 11:41] LABS: Hematocrit 41.2 % (36-47); Hemoglobin 13.20 g/dL (11.27-16.99); Mean Corpuscular HGB Conc 32.0 g/dL (30-55); Mean Corpuscular Hemoglobin 28.2 pg (27-33); Mean Corpuscular Volume 88.0 fl (85-98); Nucleated Red Blood Cells % 0 %; Platelet Count 238 10^3/cmm (157-399); Red Blood Count 4.68 10^6/uL (3.85-5.65); White Blood Count 6.26 10^3/uL (3.29-11.43)
[2024-11-21 11:59] LABS: Troponin(5th) Baseline < 6 ng/L (0-10)
[2024-11-21 12:02] LABS: INR 0.88 (0.8-1.2); Prothrombin Time 12.60 SECONDS (12.1-14.9)
[2024-11-21 12:09] LABS: Alanine Aminotransferase 13 U/L (0-33); Albumin Level 4.3 g/dL (3.5-5.2); Alkaline Phosphatase 73 U/L (35-105); Anion Gap 15.6 (5-19); Aspartate Amino Transferase 18 U/L (0-32); Blood Urea Nitrogen 15 mg/dL (8-23); Calcium 9.2 mg/dL (8.5-10.5); Carbon Dioxide 25 mmol/L (22-29); Chloride 105 mmol/L (98-107); Creatinine Clr Calc Pharmacy 56.8011; Globulin 2.2 g/dL (1.3-4.6); Glucose 86 mg/dL (65-115); Osmolality Calculated 292 mOsm/kg (285-295); Potassium 4.6 mmol/L (3.5-5.1); Sodium 141 mmol/L (136-145); Total Protein 6.5 g/dL (6.6-8.7)
--- NOTE | 2024-11-21 12:30 | ECG_ITS ---
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 Measurements Intervals [place] Rate: 51 P: 47 WA: 175 QRS: 11 QRSD: 90 T: 25 QT: 460 QTc: 426 Interpretive Statements SINUS BRADYCARDIA MINIMAL VOLTAGE CRITERIA FOR LVH, CONSIDER NORMAL VARIANT [MEETS CRITERIA IN ONE OF: R(aVL), S(V1), R(V5), R(V5/V6)+S(V1)] Compared to ECG 11/21/2024 11:08:19 No significant changes Electronically Signed On 11-24-2024 09:44:36 CDT by Les Min M.D. [email or web address]
--- NOTE | 2024-11-21 12:39 | ED_ITS ---
HPI - Chest Pain 2 General: Chief Complaint: Chest Pain Stated Complaint: CP high bp 178/98 Time Seen by Provider: 11/21/24 11:35 History of Present Illness: 69-year-old female presents emergency ro om complaining of chest pain and elevated blood pressure. Pain began 1 hour ago radiates into her back. She does have a history of hypertension no recent fever sweats or chills no productive cough Associated symptoms: Deny abdominal pain, dyspnea or fever(s) Related Data Home Medications ?Medication ?Instructions ?Recorded ?Confirmed fluticasone propionate 50 2 spray intranasal DAILY PRN 04/08/21 11/21/24 mcg/actuation nasal allergies spray,suspension (Flonase Allergy Relief) aspirin 81 mg tablet,delayed 81 mg PO DAILY 11/21/24 0 11/21/24 release citalopram 20 mg tablet 20 mg PO DAILY 11/21/2411/03 omeprazole 40 mg capsule,delayed 40 mg PO DAILY 11/21/24 release Previous Rx's ?Medication ?Instructions ?Recorded atorvastatin 10 mg tablet 10 mg PO QDAY #90 tabs 05/11 benazepril 10 mg tablet 10 mg PO QDAY #90 tabs 05/11 finasteride 5 mg tablet 5 mg PO QDAY #90 tabs metoprolol succinate 50 mg 50 mg PO QDAY #90 tabs 11/23 tablet,extended release 24 hr pen needle, diabetic 33 gauge x #100 ea 11/23/22 (Advocate Pen Needle) pantoprazole 40 mg tablet,delayed 40 mg PO DAILY 4 wee ks #30 tabs 11/21/24 release sucralfate 1 gram tablet (Carafate) 1 g PO Q6H PRN dys pepsia #20 tabs 11/21/24 Allergies Allergy/AdvReac Type Severity Reaction Status Date / Time hydrocodone Allergy Mild itch and Verified 04/08/21 10:39 nausea tramadol Allergy Mild itch Verified 04/08/21 10:39 codeine Allergy Unknown Verified 04/08/21 10:39 Review of Systems 2 Const: Denies: fever(s) or chills Card: Reports: chest pain Resp: Denies: dyspnea GI: Denies: abdominal pain : Denies: dysuria, urinary frequency or urinary urgency Musc: Denies: neck pain or back pain Skin/Breast: Denies: rash PFSH ED 2 PFSH: Medical History Essential (primary) hypertension GERD (gastroesophageal reflux disease) Surgical History H/O colonoscopy Status post breast reduction Family History Other Diabetes Family history of thyroid problem Stroke Social History Smoking and tobacco/nicotine status: never used tobacco/nicotine Alcohol intake: never Substance/Drug Use: never Marital status: Do you think of yourself as: Straight/Heterosexual Current gender identity: Female Physical Exam 2 Const: COMMON NORMALS: no acute distress GENERAL APPEARANCE: cooperative and comfortable ORIENTATION/CONSCIOUSNESS: Yes awake, Yes oriented to person, Yes oriented to place and Yes oriented to time HENMT: COMMON NORMALS: normocephalic, atraumatic and hearing grossly normal bilaterally HEAD & SCALP: normocephalic and atraumatic Resp: COMMON NORMALS: normal respiratory effort, No retractions, No use of accessory muscles and clear to auscultation bilaterally AUSCULTATION: clear to auscultation bilaterally Cardio: COMMON NORMALS: regular rate, regular rhythm and No murmurs present (Cardio) RATE: regular rate RHYTHM: regular rhythm GI: COMMON NORMALS: Soft to palpation and No hepatosplenomegaly present A USCULTATION: Yes normoactive bowel sounds PALPATION: Yes Soft to palpation, No Tenderness to palpation present (GI), No Guarding due to palpation present (GI) and Yes No hepatosplenomegaly present Extremity: COMMON NORMALS: normal to inspection, capillary refill normal, no clubbing, cyanosis or edema, no calf tenderness and no pedal edema Neuro: SENSORIUM/ORIENTATION: Yes oriented to person, Yes oriented to place and Yes oriented to time Skin: COMMON NORMALS: no rashes or lesions noted GENERAL SKIN EXAM: no rashes or lesions noted Course 2 Vital Signs: Vital signs: Vital Signs Temperature 98.5 F 11/21/24 11:09 Pulse Rate 55 L 11/21/24 14:36 Respiratory Rate 16 11/21/24 11:09 Blood Pressure 170/87 11/21/24 14:36 Pulse Oximetry 99 11/21/24 14:36 Oxygen Delivery Me thod Room Air 11/21/24 11:09 MDM - Chest Pain Medical Decision Making Chest discomfort resolved at the time we seen the patient. Troponins negative EKG did not show any significant finding. Other laboratory test unremarkable. Suspect some of her symptoms are related to reflux started on Protonix use Carafate as needed and have her follow-up with her primary care doctor Lab Data 11/21/24 11:34 11/21/24 11:34 Radiology Impressions Chest X-Ray 11/21/24 11:01 Impression: Atherosclerosis. Laboratory Results WBC 6.26 10^3/uL (3.29-11.43) 11/21/24 11:34 RBC 4.68 10^6/uL (3.85-5.65) 11/21/24 11:34 Hgb 13.20 g/dL (11.27-16.99) 11/21/24 11:34 Hct 41.2 % (36-47) 11/21/24 11:34 MCV 88.0 fl (85-98) 11/21/24 11:34 MCH 28.2 pg (27-33) 11/21/24 11:34 MCHC 32.0 g/dL (30-55) 11/21/24 11:34 RDW 12.8 % (12.1-15.1) 11/21/24 11:34 Plt Count 238 10^3/cmm (157-399) 11/21/24 11:34 MPV 9.0 fL (7.4-10.4) 11/21/24 11:34 Neut % (Auto) 51.8 % 11/21/24 11:34 Lymph % (Auto) 31.2 % 11/21/24 11:34 Spalding % (Auto) 10.9 % 11/21/24 11:34 Eos % (Auto) 5.0 % 11/21/24 11:34 Baso % (Auto) 0.6 % 11/21/24 11:34 Neut # (Auto) 3.25 10^3/uL (1.8-7.7) 11/21/24 11:34 Lymph # (Auto) 2.0 10^3/uL (0.8-4.8) 11/21/24 11:34 [place]ding # (Auto) 0.7 10^3/uL (0.2-0.9) 11/21/24 11:34 Eos # (Auto) 0.3 10^3/uL (0.0-0.8) 11/21/24 11:34 Baso # (Auto) 0.0 10^3/uL (0.0-0.1) 11/21/24 11:34 Nucleated RBC % (auto) 0 % 11/21/24 11:34 Nucleated RBCs # 0.0 /100WBC 11/21/24 11:34 PT 12.60 SECONDS (12.1-14.9) 11/21/24 11:34 INR 0.88 (0.8-1.2) 11/21/24 11:34 Sodium 141 mmol/L (136-145) 11/21/24 11:34 Potassium 4.6 mmol/L (3.5-5.1) 11/21/24 11:34 Chloride 105 mmol/L (98-107) 11/21/24 11:34 Carbon Dioxide 25 mmol/L (22-29) 11/21/24 11:34 Anion Gap 15.6 (5-19) 11/21/24 11:34 BUN 15 mg/dL (8-23) 11/21/24 11:34 Creatinine 0.9 mg/dL (0.5-0.9) 11/21/24 11:34 GFR Calculation Not Reportable 11/21/24 11:34 Glucose 86 mg/dL (65-115) 11/21/24 11:34 Calculated Osmolality 292 mOsm/kg (285-295) 11/21/24 11:34 Calcium 9.2 mg/dL (8.5-10.5) 11/21/24 11:34 Total Bilirubin 0.5 mg/dL (0.15-1.2) 11/21/24 11:34 AST 18 U/L (0-32) 11/21/24 11:34 ALT 13 U/L (0-33) 11/21/24 11:34 Alkaline Phosphatase 73 U/L (35-105) 11/21/24 11:34 Troponin T Baseline < 6 ng/L (0-10) 11/21/24 11:34 Troponin T 120 Minute < 6.0 ng/L (0-10) 11/21/24 13:15 Delta Troponin T 0 ABS# (0-10) 11/21/24 13:15 Total Protein 6.5 g/dL (6.6-8.7) L 11/21/24 11:34 Albumin 4.3 g/dL (3.5-5.2) 11/21/24 11:34 Globulin 2.2 g/dL (1.3-4.6) 11/21/24 11:34 All radiology interpretation(s) finalized by discharge EKG Data EKG 1: Interpretation: EKG 1108. Normal sinus bradycardia rate of 55, IA interval 181 QTc 415[address] No acute ST changes noted EKG 2: Interpretation: EKG 1230 sinus bradycardia rate of 51 IA interval 175 QTc [address] changes noted compared EKG done earlier today no significant changes Discharge Plan Discharge Patient Disposition: Home Clinical Impression: Atypical chest pain GERD (gastroesophageal reflux disease) Qualifiers: Esophagitis presence: without esophagitis Qualified Code(s): K21.9 - Gastro- esophageal reflux disease without esophagitis Condition: Stable Prescriptions: New pantoprazole 40 mg tablet,delayed release (DR/EC) 40 mg PO DAILY 28 Days Qty: 30 0RF sucralfate [Carafate] 1 gram tablet 1 g PO Q6H PRN (Reason: dyspepsia) Qty: 20 0RF No Action fluticasone propionate [Flonase Allergy Relief] 50 mcg/actuation spray,suspension 2 spray intranasal DAILY PRN (Reason: allergies) Rx Instructions: administer into each nostril (DME) pen needle, diabetic [Advocate Pen Needle] 33 gauge x 5/32 needle See Rx Instructions .Route Qty: 100 1RF Rx Instructions: As directed benazepril 10 mg tablet 10 mg PO QDAY Qty: 90 3RF finasteride 5 mg tablet 5 mg PO QDAY Qty: 90 3RF atorvastatin 10 mg tablet 10 mg PO QDAY Qty: 90 3RF metoprolol succinate 50 mg tablet extended release 24 hr 50 mg PO QDAY Qty: 90 3RF omeprazole 40 mg Capsule,Delayed Release(Dr/Ec) 40 mg PO DAILY aspirin [Aspir-81] 81 mg Tablet,Delayed Release (Dr/Ec) 81 mg PO DAILY citalopram 20 mg Tablet 20 mg PO DAILY Discharge Orders: Discharge ED (Routine); Ordered 11/21/24 Ordered By: William Schumacher Discharge Diet: As Directed Discharge Activity: Increase activity as tolerated Patient Instructions: Diet for Stomach Ulcers and Gastritis (ED), GERD (Gastroesophageal Reflux Disease) (ED), Opioid Safety, Pain Management, Patient Portal & Kassy Instructions Activity Restrictions/Additional Instructions: [facility]. It is very important that you follow up as instructed or that you return to the Emergency Department should you have concerns or if your condition changes or worsens in any way. Print Language: Luxembourger Coding Level of Care Code ED Bushler for Rudolph Berry
[2024-11-21 13:44] LABS: Troponin 5 2HR < 6.0 ng/L (0-10); Troponin 5 2HR Delta 0 ABS# (0-10)
[2024-11-21 14:36] VITALS: BP 170/87; PULSE 55; O2SAT 99
== END 2024-11-21 14:37 | disposition home or self-care (01) ==
PROVIDERS: Emergency Medicine; Emergency Provider Family Medicine
DX: R07.89 Other chest pain (principal); K21.9 Gastro-esophageal reflux disease without esophagitis; Z79.82 Long term (current) use of aspirin; I10 Essential (primary) hypertension
CPT/HCPCS: 36415; 71045; 80053; 84484; 85025; 85610; 93005; 99285